=== PATIENT | male | born 1990 | race Caucasian/White ===

== ENCOUNTER 2024-09-08 09:22 | Emergency (ER) | payer MEDICAID, SELFPAY ==
[2024-09-08 09:24] VITALS: BP 138/91; PULSE 80; RESP 17; TEMP 36.7; O2SAT 99; BMI 25.7
[2024-09-08 09:45] LABS: Microscopic, Urine URINE MICROSCOPIC (MICROSCOPIC)
[2024-09-08 09:53] LABS: Appearance,Urine CLEAR (Clear); Bilirubin,Urine 1+ (Negative); Blood, Urine Negative (Negative); Color,Urine YELLOW (Yellow); Glucose,Urine (UA) Negative (Negative); Ketones,Urine Negative (Negative); Leukocyte Esterase,Urine Negative (Negative); Nitrate,Urine Negative (Negative); Protein,Urine TRACE (Negative); Specific Gravity, Urine >= 1.030 (1.005-1.030); Urobilinogen,Urine 0.2 EU/dl (0.2)
[2024-09-08 10:00] VITALS: BP 144/83; PULSE 68; O2SAT 96
--- NOTE | 2024-09-08 10:14 | XR_ITS ---
FINAL REPORT CLINICAL HISTORY: Pain COMPARISON: None FINDINGS: 3 views of the left elbow were obtained. There is no acute fracture or dislocation. The joint spaces are well-preserved. There is no acute soft tissue abnormality. IMPRESSION: No acute abnormality identified. Reviewed, Interpreted and Dictated by Ángel Zambrano MD Transcribed by Madison Jensen Authenticated and [facility]
--- NOTE | 2024-09-08 10:16 | ED_ITS ---
Discharge Plan Disposition Patient Disposition: Home, Self-Care Condition: Good Prescriptions Prescriptions: New naproxen 500 mg tablet 500 mg PO BID Qty: 20 0RF Referrals Follow up/Referrals: Luciano Jones DO [Staff Physician] - See instructions Dirk Red MD [Staff Physician] - See instructions Shaheed Robin DO [Staff Physician] - See instructions Provider,MD Loco [Primary Care Provider] - See instructions Activity Restrictions/Add. Instructions Additional Instructions/Restrictions: You were evaluated in the emergency department today. At this time, we feel your elbow pain is likely related to bicep tendinitis. Please picker/puller your prescription for anti-inflammatory and take twice daily as prescribed. Follow- up very closely with primary care. We have provided you with information for one of our primary care providers, but you may pick one of your choosing. Dr. Robin is a primary care provider. Dr. Red is a urologist, who you can follow-up with for your urologic issues. If you continue to have significant elbow pain, you may also follow-up with Dr. Jones with orthopedics. You may also take Tylenol every 4-6 hours as needed for pain as well. Return to the emergency department for new or concerning symptoms. Clinical Impressions Clinical Impression: Biceps tendinitis, Hematuria, Decreased urine stream, Erectile disorder, Fatigue Stand Alone Forms Stand Alone Forms: Work/School Release Instructions Patient Instructions: DI for Tendinitis, DI for Elbow Pain Print Language Print Language: Gabonese Discharge ED Provider: Carly Jordan General Adult HPI General Chief complaint: Extremity Injury, Upper Stated complaint: Left arm will not straighten, numbness, flu- Time Seen by Provider: 09/08/24 09:26 Mode of Arrival: Ambulatory Source of Information: Patient Limitations: No Limitations Description of Symptoms (Recalled from ER Triage Doc. by RN): pt to the ED with multiple complaints. pt reports his most acute complaint is that he cant fully extend his left arm or rotate it outwards. pt denies any pain or injury but feels like he meets resistance when he attempts to. pt seperately complains that he has had urinary issues including erectile dysfunction and stream irregularity. pt denies any pain or discharge with urinating but does report a concern for STD. History of Present Illness HPI narrative: This patient is a 34-year-old male who denies significant past medical history but does not follow regularly with a doctor presenting to the emergency department for evaluation of concern for left elbow pain. He states that he is been doing a lot of heavy lifting at work, and he noticed that his elbow is extremely painful if he tries to extend it all the way. He states that he also feels pain with trying to rotate it. No redness, warmth, wounds, or injuries noted. Of note, he also states that he has some trouble getting erections and maintaining erections and has change in his urine stream, where it started to go off to the side as opposed to going straight. He states he was concerned something could be wrong with his prostate. He denies any pain with urinating or discharge. No testicular pain or swelling. No penile or testicular trauma. He notes this has been going on for some time. He also notes that for 2 years now, has been feeling very fatigued no matter how much sleep he gets. The elbow is the main concern. Related Data Previous Rx's ?Medication ?Instructions ?Recorded naproxen 500 mg tablet 500 mg PO BID #20 tabs 09/08/24 Allergies Allergy/AdvReac Type Severity Reaction Status Date / Time diphenhydramine (From Allergy Rash Verified 09/08/24 10:04 Benadryl) [facility] Disclaimer: The information contained in this section may have been updated after the patient was seen, as this information can be updated by other users. Social History Smoking Status: Current every day smoker alcohol intake: never current occupational status: employed Travel in the last 8 weeks: None ROS Obtained: Yes All systems reviewed & no additional complaints except as documented Physical Exam General General appearance: alert and in no apparent distress Head Head exam: atraumatic and normocephalic Eye Eye exam: Present normal appearance, PERRL and EOMI ENT ENT exam: Present normal exam, normal oropharynx, mucous membranes moist and normal external ear exam Neck Neck exam: Present normal inspection, full ROM and trachea midline; Absent tenderness Chest Chest inspection: Present normal inspection and symmetric chest wall rise; Absent tenderness Respiratory Respiratory exam: Present normal lung sounds bilaterally; Absent respiratory distress, wheezes, stridor or accessory muscle use Cardiovascular Cardiovascular exam: Present regular rate and normal rhythm Abdominal Exam Abdominal exam: Present soft; Absent distention, tenderness or guarding Extremities Exam Extremities exam: Present tenderness and normal capillary refill; Absent full ROM, edema or joint swelling Expanded Upper Extremity Exam Left: L/R Arms Bottom View: 2 1. Tenderness to palpation over the biceps tendon. Limited in range of motion with full extension, but he does have intact active and passive range of motion otherwise. No redness, warmth, or joint effusion. He is neurovascularly intact distally. Back Exam Back exam: Present normal inspection and full ROM; Absent tenderness Neurological Exam Neurological exam: Present alert, oriented X3, CN II-XII intact and normal gait; Absent motor sensory deficit Psychiatric Psychiatric exam: Present normal affect and normal mood Skin Skin exam: Present warm and dry Medical Decision Making Medical Records Medical records reviewed: Yes I reviewed the patient's medical records. Screening: Per USPSTF and CDC recommendations, given the prevalence of disease in our region, it is our hospital?s policy to screen for HIV and viral Hepatitis for all patients aged 18 and over and those with ongoing risk factors. Nain Inquiry Pt receiving controlled substance: No Vital Signs: 09/08/24 09:24 09/08/24 10:00 09/08/24 10:30 Temperature 98.1 F Temperature Source Oral Pulse Rate 68 67 Pulse Rate [Left Radial] 80 Respiratory Rate 17 Blood Pressure 144/83 H 142/8 H Blood Pressure [Right Arm] 138/91 H Blood Pressure Mean [Right Arm] 106 Blood Pressure Source [Right Arm] Automatic Cuff Blood Pressure Position [Right Arm] Sitting 02 Sat by Pulse Oximetry 99 96 99 Oxygen Delivery Method Room Air Room Air 09/08/24 11:00 09/08/24 11:45 Temperature 98.1 F Temperature Source Pulse Rate 66 88 Pulse Rate [Left Radial] Respiratory Rate 20 Blood Pressure 131/86 124/81 Blood Pressure [Right Arm] Blood Pressure Mean [Right Arm] Blood Pressure Source [Right Arm] Blood Pressure Position [Right Arm] 02 Sat by Pulse Oximetry 99 Oxygen Delivery Method Room Air Room Air Lab Data Lab results reviewed: Yes I reviewed the patient's lab results. Lab Results 09/08/24 09:28: WBC 12.5 H, RBC 4.85, Hgb 14.8, Hct 44.0, MCV 90.7, MCH 30.5, MCHC 33.6, RDW 11.9, Plt Count 291, MPV 9.8, Neut % (Auto) 72.3, Lymph % (Auto) 14.8, Cooper % (Auto) 7.3, Eos % (Auto) 4.8, Baso % (Auto) 0.5, Neut # (Auto) 9.1 H, Lymph # (Auto) 1.9, Cooper # (Auto) 0.9, Eos # (Auto) 0.6 H, Baso # (Auto) 0.1, Sodium 135 L, Potassium 3.7, Chloride 108 H, Carbon Dioxide 28, Anion Gap 2.7 L, BUN 11, Creatinine 0.90, Estimated Creat Clear 148, Estimated GFR 97, Est GFR ( Amer) 117, Glucose 99, Calcium 9.3, Magnesium 2.2, Total Bilirubin 0.8, AST 37, ALT 23, Alkaline Phosphatase 70, Total Protein 6.6, Albumin 4.2, Globulin 2.4, Albumin/Globulin Ratio 1.8 09/08/24 09:32: Urine Color Yellow, Urine Appearance Clear, Urine pH 6.0, Ur Specific [place] >= 1.030, Urine Protein Trace, Urine Glucose (UA) Negative, Urine Ketones Negative, Urine Blood Negative, Urine Nitrate Negative, Urine Bilirubin 1+ A, Urine Urobilinogen 0.2, Ur Leukocyte Esterase Negative, Urine RBC 5-10, Urine WBC Occasional, Ur Squamous Epith Cells None, Urine Bacteria Trace 09/08/24 09:28 09/08/24 09:28 Orders (Tests/Meds): ED MEDICATIONS Discontinued Medications Generic Name Dose Route Start Last Admin Trade Name Freq PRN Reason Stop Dose Admin Dexamethasone Sodium Phosphate 10 mg 09/08/24 10:14 09/08/24 10:25 Dexamethasone 4mg/Ml 1ml Vial IV 09/08/24 10:15 10 mg ONCE ONE Administration Ketorolac Tromethamine 30 mg 09/08/24 10:14 09/08/24 10:25 Ketorolac 30mg/Ml Vial IV 09/08/24 10:15 30 mg ONCE ONE Administration ORDERS Category Date Time Status Elbow XR left mininum 3 views [XR elbow LT min 3V] Stat Exams 09/08/24 10:14 Completed CBC w/Auto Diff [Complete Blood Count Auto Diff] Stat Lab 09/08/24 09:28 Completed CMP [Comprehensive Metabolic Panel] Stat Lab 09/08/24 09:28 Completed Magnesium Stat Lab 09/08/24 09:28 Completed UA [Urinalysis and Microscopic] Stat Lab 09/08/24 09:32 Completed Medical Decision Narrative: In summary, this patient is a 34-year-old male presenting to the Emergency Department for evaluation of pain in the left elbow with extension and rotation. He also has multiple other complaints including changes in direction of his urine stream, erectile dysfunction, and fatigue. Differential diagnoses considered include but are not limited to bicep tendinitis, lateral epicondylitis, medial epicondylitis, fracture, joint effusion, bursitis. Ruling out the most morbid conditions drove assessment. On exam, the patient is sitting upright in no acute distress. He has tenderness palpation over his bicep tendon/attachment at his elbow with limitations in endrange extension, but otherwise he has preserved range of motion. He is neurovascularly intact. No significant joint effusion, redness, warmth, or other concerns. For his fatigue and urinary concerns, urinalysis, urine gonorrhea, urine chlamydia, CBC, CMP, and magnesium were ordered. For his elbow, 3 view left elbow x-rays were ordered. He was given IV Toradol and dexamethasone for anti-inflammatories for his elbow pain. I independently interpreted x-ray prior to the radiologist read and noted no acute fracture. Please see their read for final interpretation. Labs were obtained that demonstrated mild leukocytosis which is nonspecific. Chemistry is reassuring. On reassessment, patient had good improvement after administration of interventions above. He is resting comfortably in no acute distress. At this time, I feel that he is appropriate discharge home as I feel we have excluded acute life-threatening pathology as a cause of his symptoms. He is given instructions for follow-up with urology given his urologic issues, follow-up with orthopedics for his elbow, follow-up with PCP. He was given prescription for NSAIDs and strict return precautions. He was discharged after all questions were answered. Critical Care Critical Care Time Critical Care Time: No
[2024-09-08] MEDS: KETOROLAC 30MG/ML VIAL 30 MG IV (10:25)
[2024-09-08] MEDS: DEXAMETHASONE 4MG/ML 1ML VIAL 10 MG IV (10:25)
[2024-09-08 10:30] VITALS: BP 142/8; PULSE 67; O2SAT 99
[2024-09-08 10:36] LABS: Bacteria,Urine Trace /lpf; WBC,Urine Occasional #/hpf (0-3)
[2024-09-08 10:47] LABS: Albumin Level 4.2 g/dl (3.5-5.0); Chloride 108 mmol/L (98-107); Potassium 3.7 mmoL/L (3.5-5.1); Sodium 135 mmol/L (136-145)
[2024-09-08 10:50] LABS: Alanine Aminotransferase 23 U/L (12-78); Albumin/Globulin Ratio 1.8 (1.1-1.8); Alkaline Phosphatase 70 U/L (38-126); Anion Gap 2.7 mEq/L (5-15); Aspartate Amino Transferase 37 U/L (17-59); Bilirubin,Total 0.8 mg/dl (0.2-1.3); Blood Urea Nitrogen 11 mg/dl (9-20); Calcium 9.3 mg/dl (8.4-10.2); Carbon Dioxide 28 mmol/L (22.0-30.0); Creatinine Clearance Estimated 148 mL/min (50-200); Estimated Glomerular Filt Rate 97 ml/min (>60); GFR (African American) 117 ML/MIN (>60); Globulin 2.4 g/dL (1.3-3.2); Glucose 99 mg/dl (74-100); Magnesium 2.2 mg/dl (1.6-2.3); Total Protein,Serum 6.6 g/dl (6.3-8.2)
[2024-09-08 11:00] VITALS: BP 131/86; PULSE 66; O2SAT 99
[2024-09-08 11:01] LABS: Basophils % 0.5 % (0.1-2.0); Eosinophils # 0.6 K/mm3 (0.0-0.4); Eosinophils % 4.8 % (0.1-12.0); Hemoglobin 14.8 g/dL (14.1-18.0); Lymphocytes # 1.9 K/mm3 (0.7-4.5); Lymphocytes % 14.8 % (10-50); Mean Corpuscular HGB Conc 33.6 g/dL (31.8-35.4); Mean Corpuscular Hemoglobin 30.5 pg (27.0-31.2); Mean Corpuscular Volume 90.7 fl (80-94); Mean Platelet Volume 9.8 fl (7.4-10.4); Monocytes # 0.9 K/mm3 (0.1-1.0); Monocytes % 7.3 % (1.7-9.3); Neutrophils # 9.1 K/mm3 (1.8-7.8); Neutrophils % 72.3 % (37.0-80.0); Platelet Count 291 K/mm3 (142-424); Red Blood Count 4.85 M/mm3 (4.60-6.20); Red Cell Distribution Width 11.9 % (11.5-17.5); White Blood Count 12.5 K/mm3 (4.8-10.8)
[2024-09-08 11:02] LABS: Basophils # 0.1 K/mm3 (0-0.2)
[2024-09-08 11:45] VITALS: BP 124/81; PULSE 88; RESP 20; TEMP 36.7; O2SAT 99
[2024-09-10 11:09] LABS: Neisseria gonorrhoeae, NAA Negative (Negative)
== END 2024-09-08 11:50 | disposition home or self-care (01) ==
PROVIDERS: Emergency Provider Emergency Medicine
DX: R31.9 Hematuria, unspecified (principal); M75.22 Bicipital tendinitis, left shoulder; N52.9 Male erectile dysfunction, unspecified; R39.12 Poor urinary stream; R53.83 Other fatigue; M25.522 Pain in left elbow; M79.602 Pain in left arm
CPT/HCPCS: 73080; 80053; 81001; 83735; 85025; 87491; 87591; 96374; 96375; 99283; J1100; J1885